=== PATIENT | female | born 2000 ===

== ENCOUNTER 2021-10-18 10:23 | Emergency (ER) | payer OTHER ==
[2021-10-18 10:36] VITALS: PULSE 81; TEMP 97.9
[2021-10-18] MEDS ORDERED: SODIUM CHLORIDE 0.9% 1,000 ML IV STA (11:14)
[2021-10-18 11:50] LABS: Appearance,Urine Clear (Clear); Basophils % (A) 0 %; Bilirubin,Urine Negative (Negative); Blood,Urine Negative (Negative); Color,Urine Light Yellow; Eosinophils # (A) 0.1 k/uL (0-0.7); Eosinophils % (A) 2 %; Glucose,Urine (UA) Negative (Negative); HGB 13.1 gm/dL (11.4-16.0); Ketones,Urine Negative (Negative); Leukocyte Esterase,Urine Negative (Negative); Lymphocytes # (A) 1.8 k/uL (1.0-4.8); Lymphocytes % (A) 23 %; MCH 28.6 pg (25.0-35.0); MCHC 34.5 g/dL (31.0-37.0); MCV 83.1 fL (80.0-100.0); Mean Platelet Volume 8.1; Monocytes # (A) 0.3 k/uL (0-1.0); Monocytes % (A) 3 %; Neutrophils # (A) 5.4 k/uL (1.3-7.7); Neutrophils % (A) 70 %; Nitrite,Urine Negative (Negative); Platelet Count 284 k/uL (150-450); Protein,Urine Negative (Negative); RBC 4.57 m/uL (3.80-5.40); RDW 13.9 % (11.5-15.5); Specific Gravity,Urine 1.016 (1.001-1.035); Urobilinogen,Urine <2.0 mg/dL (<2.0); WBC 7.7 k/uL (4.0-11.0)
[2021-10-18 12:02] LABS: ALT 11 U/L (4-34); AST 20 U/L (14-36); African American GFR (CKD) >90 (>60 ml/min/1.73 sqM); Alkaline Phosphatase 55 U/L (38-126); Anion Gap 14 mmol/L; Blood Urea Nitrogen 12 mg/dL (7-17); Calcium 9.7 mg/dL (8.4-10.2); Carbon Dioxide 22 mmol/L (22-30); Chloride 107 mmol/L (98-107); Glucose 94 mg/dL (74-99); Lipase 62 U/L (23-300); Non-African American GFR(CKD) >90 (>60 ml/min/1.73 sqM); Potassium 4.4 mmol/L (3.5-5.1); Sodium 143 mmol/L (137-145); Total Bilirubin 0.4 mg/dL (0.2-1.3); Total Protein 8.2 g/dL (6.3-8.2)
--- NOTE | 2021-10-18 12:08 | ED ---
Chest Pain HPI - General Chief Complaint: Chest Pain Stated Complaint: chest pain Time Seen by Provider: 10/18/21 11:01 Source: patient Mode of arrival: wheelchair Limitations: no limitations - History of Present Illness Initial Comments: Patient is a 21-year-old female who presents to the emergency department with a chief complaint of abdominal pain and chest pain. Patient states she has experienced intermittent generalized abdominal pain for the past 3 weeks. She endorses intermittent nausea and reports vomiting each morning. Denies abdominal pain and nausea currently. Denies fever, chills, diarrhea, and chance of . Patient also reports intermittent chest pain for the past 3 days. Patient states she has a couple chest pain episodes a day that lasts about 10 minutes. Describes it as a kicking sensation in her chest with associated shortness of breath. Patient states these episodes sometimes wake her up from her sleep. Denies chest pain and shortness of breath currently. She does admit that it might be related to stress. Patient started a new job 3 weeks ago which has been causing her some anxiety. - Related Data Previous Rx's Medication Instructions Recorded Ondansetron Odt [Zofran Odt] 4 mg PO Q8HR PRN #12 tab 10/18/21 Allergies Allergy/AdvReac Type Severity Reaction Status Date / Time No Known Allergies Allergy Verified 10/18/21 12:42 Review of Systems ROS Statement: Those systems with pertinent positive or pertinent negative responses have been documented in the HPI. ROS Other: All systems not noted in ROS Statement are negative. Past Medical History Past Medical History: No Reported History History of Any Multi-Drug Resistant Organisms: None Reported Past Surgical History: No Surgical Hx Reported Past Psychological History: No Psychological Hx Reported Smoking Status: Vaper Past Alcohol Use History: Occasional Past Drug Use History: Marijuana General Exam Limitations: no limitations General appearance: alert, in no apparent distress Eye exam: Present: normal appearance, PERRL, EOMI. Absent: scleral icterus, conjunctival injection, periorbital swelling Respiratory exam: Present: normal lung sounds bilaterally. Absent: respiratory distress, wheezes, rales, rhonchi, stridor Cardiovascular Exam: Present: regular rate, normal rhythm, normal heart sounds. Absent: systolic murmur, diastolic murmur, rubs, gallop, clicks GI/Abdominal exam: Present: soft, normal bowel sounds. Absent: distended, tenderness, guarding, rebound, rigid Neurological exam: Present: alert, oriented X3, CN II-XII intact Psychiatric exam: Present: normal affect, normal mood Skin exam: Present: warm, dry, intact, normal color. Absent: rash Course Vital Signs 10/18/21 10:30 Temperature 97.9 F Pulse Rate 81 Respiratory 20 Rate Blood Pressure 117/73 O2 Sat by Pulse 99 Oximetry Chest Pain MDM - MDM This is a 21-year-old female with intermittent chest pain and abdominal pain. Thorough history and examination were performed. Patient denies any symptoms now. She does admit to stress and anxiety for from her new job. There are normal heart sounds on auscultation with no murmurs, rubs, or gallops appreciated. The abdomen soft nontender. Etiologies of patient's symptoms were explored. EKG shows sinus rhythm. Troponin is within normal limits. is not detected. Other laboratory values are normal. Chest x-ray is negative for acute process. At this time there are no diagnostic studies to explain patient's symptoms. They may be related to her stress. She could potentially be having panic attacks. Patient does not have a primary care provider. I did provide her with one and told her to call to see if there taking new patients. She will return if she experiences new, concerning, or worsening symptoms. I will send her home with Casie. Dr. Fallon is my attending. Disposition Clinical Impression: Chest pain, Abdominal pain, Nausea and vomiting Disposition: HOME SELF-CARE Condition: Good Instructions (If sedation given, give patient instructions): Chest Pain (ED), Abdominal Pain (ED), Panic Attack (ED) Additional Instructions: Please take medication as directed. follow-up with primary care provider in one to 2 days. Return to the emergency department if you experience new, concerning, or worsening symptoms. Prescriptions: Ondansetron Odt [Zofran Odt] 4 mg PO Q8HR PRN #12 tab PRN Reason: Nausea Is patient prescribed a controlled substance at d/c from ED?: No Referrals: None,Stated [Primary Care Provider] - 1-2 days Evens Dave DO [STAFF PHYSICIAN] - 1-2 days Time of Disposition: 12:08
--- NOTE | 2021-10-18 12:41 | XR ---
EXAMINATION TYPE: XR chest 2V DATE OF EXAM: 10/18/2021 COMPARISON: NONE HISTORY: Shortness of breath. Chest pain for 3 days. TECHNIQUE: Frontal and lateral views of the chest are obtained. FINDINGS: There is no focal air space opacity, pleural effusion, or pneumothorax seen. The cardiac silhouette size is within normal limits. The osseous structures are intact. IMPRESSION: No acute process.
[2021-10-18 12:56] VITALS: BP 107/68; RESP 18
== END 2021-10-18 12:55 | disposition home or self-care (01) ==
LOC: EC 10:23
DX: R07.89 Other chest pain (principal); R11.2 Nausea with vomiting, unspecified; F17.209 Nicotine dependence, unspecified, with unspecified nicotine-induced disorders
CPT/HCPCS: 36415; 71046; 80053; 81003; 81025; 83690; 84484; 85025; 87502; 87635; 93005